=== PATIENT | female | born 1965 ===

== ENCOUNTER 2023-02-17 15:57 | Outpatient (CLI) | payer OTHER | END 2023-02-17 15:58 | disposition home or self-care (01) | LOC: BICMAMMO 15:57 | PROVIDERS: ATTEND Nurse Practitioner Family | DX: Z12.31 Encounter for screening mammogram for malignant neoplasm of breast (principal); Z98.890 Other specified postprocedural states; Z80.3 Family history of malignant neoplasm of breast | CPT/HCPCS: 77063; 77067 ==